=== PATIENT | male | born 1950 | race African-American/Black ===

== ENCOUNTER 2018-01-08 12:04 | Inpatient (IN) | payer OTHER ==
[2018-01-08 12:44] VITALS: BMI 17.4
--- NOTE | 2018-01-08 17:36 | HP ---
Admission [facility] - HPI Chief Complaint: PT here for stopping cocaine use- uses about sniffs/smokes about $50/day. Says he has lost weight b/c not eating when he uses cocaine. Last use today Pt states has a h/o HTN and was taking norvasc 5mg- last use few days ago. Pt states he is on [facility] methadone program 100 mg. Occ uses heroin sniffing- last use today Allergies/Adverse Reactions: Allergies Allergy/AdvReac Type Severity Reaction Status Date / Time Penicillins AdvReac Verified 01/08/18 13:08 History of Present Illness: Pt has been using since age 26. Stopped using for about 16 years and started again about 2 years ago after his . Exam Limitations: No Limitations - Ebola screening Have you traveled outside of the country in the last 21 days: No Have you had contact with anyone from an Ebola affected area: No Have you been sick,other than usual withdrawal symptoms: No Do you have a fever: No Patient History - Patient Medical History Hx Anemia: No Hx Asthma: No Hx Chronic Obstructive Pulmonary Disease (COPD): No Hx Cancer: No Hx Cardiac Disorders: No Hx Congestive Heart Failure: No Hx Hypertension: Yes Hx Hypercholesterolemia: No Hx Pacemaker: No HX Cerebrovascular Accident: No Hx Seizures: No Hx Dementia: No Hx Diabetes: No Hx Gastrointestinal Disorders: No Hx Liver Disease: No Hx Genitourinary Disorders: No Hx Sexually Transmitted Disorders: No Hx Renal Disease (ESRD): No Hx Thyroid Disease: No - Smoking Cessation Smoking history: Never smoked - Substance & Tx. History Hx Alcohol Use: No Hx Substance Use: Yes Substance Use Type: Cocaine, Heroin Hx Substance Use Treatment: Yes (methadone) - Substances Abused Heroin Route: Inhalation Frequency: 3-6 times per week Amount used: 2-3 BAGS Age of first use: 18 Date of Last Use: 01/08/18 Cocaine Route: Smoking Frequency: Daily Amount used: $40-$50 Age of first use: 26 Date of Last Use: 01/08/18 Family Disease History - Family Disease History Family Disease History: Diabetes: Sister, [place]: Mother, Other: Daughter (overdose - ) Admission Physical Exam [facility] - Vital Signs Vital Signs: Vital Signs - 24 hr 01/08/18 12:40 Temperature 98.2 F Pulse Rate 58 L Respiratory 18 Rate Blood Pressure 126/74 - Physical General Appearance: Yes: Thin HEENTM: Yes: Within Normal Limits, EOMI, Hearing grossly Normal, Normal Voice, Other (upper and lower dentures) Respiratory: Yes: Within Normal Limits, Lungs Clear Neck: Yes: Within Normal Limits Breast: Yes: Within Normal Limits Cardiology: Yes: Within Normal Limits Abdominal: Yes: Within Normal Limits Genitourinary: Yes: Within Normal Limits Back: Yes: Within Normal Limits Musculoskeletal: Yes: Within Normal Limits Extremities: Yes: Within Normal Limits, Other (thin female) Neurological: Yes: Within Normal Limits Integumentary: Yes: Other (thin, dry skin of feet) Lymphatic: Yes: Within Normal Limits - Diagnostic (1) Cocaine abuse Current Visit: Yes Status: Acute (2) Cachectic Current Visit: Yes Status: Acute (3) HTN (hypertension) Current Visit: Yes Status: Acute (4) Dry skin Current Visit: Yes Status: Acute (5) Opioid use disorder, mild, in early remission, on maintenance therapy Current Visit: Yes Status: Acute (6) Methadone maintenance therapy patient Current Visit: Yes Status: Acute [facility] Breath Alcohol Content Breath Alcohol Content: 0 Urine Drug Screen - Results Drug Screen Negative: No Urine Drug Screen Results: ROMA-Cocaine, OPI-Opiates, MTD-Methadone Inpatient Rehab Admission - Initial Determination Are CD services needed?: Yes Free of communicable disease: Yes Not in need of hospitalization: Yes - Rehab Admission Criteria Previous failed treatment: No Poor recovery environment: Yes Comorbidities: Yes Lacks judgement: Yes Patient is meeting Inpatient Rehab admission criteria:: Yes
[2018-01-08] MEDS ORDERED: MAGNESIUM HYDROX 2400MG/30ML ORAL SUSPENSION 30 ML CUP PO PRN (17:47)
[2018-01-08] MEDS ORDERED: MAGNESIUM CITRATE 300 ML BOTTLE PO PRN (17:47)
[2018-01-08] MEDS ORDERED: P-EPHED 60MG/TRIPROLIDI 2.5MG TABLET PO PRN (17:47)
[2018-01-08] MEDS ORDERED: ACETAMINOPHEN 325 MG TABLET (FP) PO PRN (17:47)
[2018-01-08] MEDS ORDERED: LOPERAMIDE HCL 2 MG CAPSULE PO PRN (17:47)
[2018-01-08] MEDS ORDERED: guaiFENesin/D-METHORPHAN HB 10 ML UNIT-DOSE CUPS PO PRN (17:47)
[2018-01-08] MEDS ORDERED: MENTHOL/PHENOL 1 EACH UD MM PRN (17:47)
[2018-01-08] MEDS ORDERED: MAG HYDROX/AL HYDROX/SIMETH 30 ML UNIT-DOSE CUP PO PRN (17:47)
[2018-01-08] MEDS ORDERED: IBUPROFEN 400 MG TABLET (FP) PO PRN (17:47)
[2018-01-08] MEDS: VITAMINS A AND D TOPICAL OINTMENT 60 GM TUBE TP SCH ×2 (22:21→23:32)
[2018-01-08] MEDS: THIAMINE HCL 100 MG TABLET (FP) PO SCH (22:21)
[2018-01-08 23:52] LABS: URINE APPEARANCE CLEAR; URINE BILIRUBIN NEGATIVE (<2.0 mg/dL); URINE COLOR YELLOW; URINE GLUCOSE (UA) NEGATIVE (NEGATIVE); URINE KETONE NEGATIVE (NEGATIVE); URINE LEUK ESTERASE NEGATIVE (NEGATIVE); URINE NITRITE NEGATIVE (NEGATIVE); URINE PROTEIN NEGATIVE (NEGATIVE); URINE UROBILINOGEN NEGATIVE mg/dL (0.2-1.0)
[2018-01-09] MEDS: VITAMINS A AND D TOPICAL OINTMENT 60 GM TUBE TP SCH ×3 (06:00→18:00)
--- NOTE | 2018-01-09 06:53 | HP ---
Psychiatrist Admission - Data Date of interview: 01/09/18 Admission source: 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 Patient is on methadone 100 mg/day Psychiatric History: Denies history of previous psychiatric treatment Physical/Sexual Abuse/Trauma History: Denies emotional, physical or sexual abuse as DV relationship. No service Additional Comment: Reports history of one previous distant(20 years ago) arrest on charges of drug possession. Vital Signs: Vital Signs - 24 hr 01/08/18 01/09/18 01/09/18 12:40 03:30 06:43 Temperature 98.2 F 98.1 F Pulse Rate 58 L 56 L Respiratory 18 18 16 Rate Blood Pressure 126/74 112/63 Allergies/Adverse Reactions: Allergies Allergy/AdvReac Type Severity Reaction Status Date / Time Penicillins AdvReac Verified 01/08/18 13:08 Date of last physical exam: 01/08/18 Concur with the findings of this exam: Yes - Substance Abuse/Tx History Hx Substance Use: Yes (Currently attends [facility]) Substance Use Type: Cocaine (Started smoking crack cocaine at ge 26, consumes $ 40-50 worth daily. Last Smoked on 01/08/18), Heroin (Started using heroin at age 18, consumes 2-3 bags 3-6 times weekly. Last used on 01/08/18) Hx Substance Use Treatment: Yes (4-5 previous inpt detox & 2 inpt rehab admissions) Mental Status Exam - Mental Status Exam Alert and Oriented to: Time, Place, Person Cognitive Function: Fair Patient Appearance: Well Groomed Mood: Hopeful, Euthymic Patient Behavior: Cooperative Speech Pattern: Clear Voice Loudness: Normal Thought Process: Intact, Goal Oriented Thought Disorder: Not Present Hallucinations: Denies Suicidal Ideation: Denies Homicidal Ideation: Denies Insight/Judgement: Fair Sleep: Fair Appetite: Good Muscle strength/Tone: Normal Gait/Station: Normal Psychiatric Findings - Problem List ([place] 1, 2,3) (1) Cocaine dependence Current Visit: Yes Status: Acute (2) Opioid dependence on agonist therapy Current Visit: Yes Status: Chronic (3) HTN (hypertension) Current Visit: Yes Status: Acute Qualifiers: Hypertension type: essential hypertension Qualified Code(s): I10 - Essential (primary) hypertension (4) Positive PPD, treated Current Visit: Yes Status: Acute - Initial Treatment Plan Initial Treatment Plan: Monitor progress
[2018-01-09] MEDS ORDERED: METHADONE HCL 10 MG TABLET PO SCH (07:30)
[2018-01-09] MEDS: METHADONE 80 MG, METHADONE 20 MG PO SCH (08:45)
[2018-01-09] MEDS: PRENATAL VITAMINS W/ FOLIC ACID TABLET (FP) PO SCH (10:02)
[2018-01-09] MEDS ORDERED: METHADONE HCL 40 MG DISPERSABLE TABLET ONE (10:04)
[2018-01-09] MEDS ORDERED: METHADONE HCL 10 MG TABLET ONE (10:04)
[2018-01-09 10:56] LABS: ALBUMIN 3.5 g/dl (3.4-5.0); ALK PHOS 115 U/L (45-117); ANION GAP 10 MMOL/L (8-16); BILIRUBIN,TOTAL 0.7 mg/dL (0.2-1); BLOOD UREA NITROGEN 19 mg/dL (7-18); CHLORIDE 105 mmol/L (98-107); CO2 25 mmol/L (21-32); CREATININE 0.8 mg/dL (0.55-1.3); GLUCOSE,RANDOM 92 mg/dL (74-106); POTASSIUM 4.2 mmol/L (3.5-5.1); SGOT/AST 67 U/L (15-37); SGPT/ALT 58 U/L (13-61); SODIUM 141 mmol/L (136-145)
[2018-01-09 10:57] LABS: MEAN PLT VOLUME 11.4 fl (7.5-11.1); RDW 13.7 % (11.9-15.9); WHITE BLOOD COUNT 4.2 K/mm3 (4.0-10.0)
[2018-01-09 11:02] LABS: HEMATOCRIT 40.3 % (35.4-49); HEMOGLOBIN 13.2 GM/dL (11.7-16.9); MCH 30.7 pg (25.7-33.7); MCHC 32.7 g/dl (32.0-35.9); MEAN CELL VOLUME 93.8 fl (80-96); PLATELET COUNT 162 K/MM3 (134-434); RBC 4.29 M/mm3 (4.00-5.60)
[2018-01-09] MEDS: THIAMINE HCL 100 MG TABLET (FP) PO SCH (21:36)
[2018-01-10] MEDS: VITAMINS A AND D TOPICAL OINTMENT 60 GM TUBE TP SCH ×4 (00:57→17:42)
[2018-01-10] MEDS ORDERED: METHADONE HCL 10 MG TABLET ONE (02:34)
[2018-01-10] MEDS ORDERED: METHADONE HCL 40 MG DISPERSABLE TABLET ONE (02:35)
[2018-01-10] MEDS: METHADONE 80 MG, METHADONE 20 MG PO SCH (06:07)
[2018-01-10] MEDS: PRENATAL VITAMINS W/ FOLIC ACID TABLET (FP) PO SCH (09:49)
[2018-01-10] MEDS ORDERED: PT OWN MED DRAWER 7, Y5N ONE (16:58)
[2018-01-10] MEDS: THIAMINE HCL 100 MG TABLET (FP) PO SCH (22:02)
[2018-01-11] MEDS: VITAMINS A AND D TOPICAL OINTMENT 60 GM TUBE TP SCH ×4 (02:22→18:00)
[2018-01-11] MEDS ORDERED: METHADONE HCL 40 MG DISPERSABLE TABLET ONE (04:09)
[2018-01-11] MEDS ORDERED: METHADONE HCL 10 MG TABLET ONE (04:09)
[2018-01-11] MEDS: METHADONE 80 MG, METHADONE 20 MG PO SCH (06:20)
[2018-01-11] MEDS: PRENATAL VITAMINS W/ FOLIC ACID TABLET (FP) PO SCH (09:47)
[2018-01-11] MEDS ORDERED: PT OWN MED DRAWER 7, Y5N ONE ×2 (09:49→16:41)
[2018-01-11] MEDS: THIAMINE HCL 100 MG TABLET (FP) PO SCH (21:41)
[2018-01-12] MEDS: VITAMINS A AND D TOPICAL OINTMENT 60 GM TUBE TP SCH ×4 (00:18→17:02)
[2018-01-12] MEDS ORDERED: METHADONE HCL 40 MG DISPERSABLE TABLET ONE (03:51)
[2018-01-12] MEDS ORDERED: METHADONE HCL 10 MG TABLET ONE (03:51)
[2018-01-12] MEDS: METHADONE 80 MG, METHADONE 20 MG PO SCH (06:01)
[2018-01-12] MEDS: PRENATAL VITAMINS W/ FOLIC ACID TABLET (FP) PO SCH (10:00)
[2018-01-12] MEDS: THIAMINE HCL 100 MG TABLET (FP) PO SCH (21:27)
[2018-01-13] MEDS: VITAMINS A AND D TOPICAL OINTMENT 60 GM TUBE TP SCH ×4 (00:05→19:20)
[2018-01-13] MEDS ORDERED: METHADONE HCL 40 MG DISPERSABLE TABLET ONE (04:35)
[2018-01-13] MEDS ORDERED: METHADONE HCL 10 MG TABLET ONE (04:35)
[2018-01-13] MEDS: METHADONE 80 MG, METHADONE 20 MG PO SCH (06:27)
[2018-01-13] MEDS: PRENATAL VITAMINS W/ FOLIC ACID TABLET (FP) PO SCH (10:11)
[2018-01-13] MEDS ORDERED: PT OWN MED DRAWER 7, Y5N ONE (12:36)
[2018-01-13] MEDS: THIAMINE HCL 100 MG TABLET (FP) PO SCH (22:02)
[2018-01-14] MEDS: VITAMINS A AND D TOPICAL OINTMENT 60 GM TUBE TP SCH ×5 (00:49→23:09)
[2018-01-14] MEDS ORDERED: METHADONE HCL 40 MG DISPERSABLE TABLET ONE (03:23)
[2018-01-14] MEDS ORDERED: METHADONE HCL 10 MG TABLET ONE (03:23)
[2018-01-14] MEDS ORDERED: PT OWN MED DRAWER 7, Y5N ONE ×2 (03:23→17:09)
[2018-01-14] MEDS: METHADONE 80 MG, METHADONE 20 MG PO SCH (06:07)
[2018-01-14] MEDS: PRENATAL VITAMINS W/ FOLIC ACID TABLET (FP) PO SCH (09:53)
[2018-01-14] MEDS: THIAMINE HCL 100 MG TABLET (FP) PO SCH (21:27)
[2018-01-15] MEDS ORDERED: METHADONE HCL 10 MG TABLET ONE (02:42)
[2018-01-15] MEDS ORDERED: METHADONE HCL 40 MG DISPERSABLE TABLET ONE (02:42)
[2018-01-15] MEDS: METHADONE 80 MG, METHADONE 20 MG PO SCH (06:01)
[2018-01-15] MEDS: VITAMINS A AND D TOPICAL OINTMENT 60 GM TUBE TP SCH ×3 (06:02→19:11)
[2018-01-15] MEDS: PRENATAL VITAMINS W/ FOLIC ACID TABLET (FP) PO SCH (09:55)
[2018-01-15] MEDS: THIAMINE HCL 100 MG TABLET (FP) PO SCH (22:03)
[2018-01-16] MEDS: VITAMINS A AND D TOPICAL OINTMENT 60 GM TUBE TP SCH ×6 (00:39→23:50)
[2018-01-16] MEDS ORDERED: METHADONE HCL 40 MG DISPERSABLE TABLET ONE (05:27)
[2018-01-16] MEDS ORDERED: METHADONE HCL 10 MG TABLET ONE (05:27)
[2018-01-16] MEDS: METHADONE 80 MG, METHADONE 20 MG PO SCH (06:18)
[2018-01-16] MEDS: PRENATAL VITAMINS W/ FOLIC ACID TABLET (FP) PO SCH (10:02)
[2018-01-16] MEDS: THIAMINE HCL 100 MG TABLET (FP) PO SCH (22:57)
[2018-01-17] MEDS ORDERED: METHADONE HCL 10 MG TABLET ONE (04:11)
[2018-01-17] MEDS ORDERED: METHADONE HCL 40 MG DISPERSABLE TABLET ONE (04:12)
[2018-01-17] MEDS: VITAMINS A AND D TOPICAL OINTMENT 60 GM TUBE TP SCH ×3 (05:56→19:17)
[2018-01-17] MEDS: METHADONE 80 MG, METHADONE 20 MG PO SCH (06:26)
[2018-01-17] MEDS: PRENATAL VITAMINS W/ FOLIC ACID TABLET (FP) PO SCH (10:44)
[2018-01-17] MEDS: MELATONIN 5 MG TABLETS PO PRN (22:03)
[2018-01-17] MEDS: THIAMINE HCL 100 MG TABLET (FP) PO SCH (22:03)
[2018-01-18] MEDS ORDERED: METHADONE HCL 40 MG DISPERSABLE TABLET ONE (04:29)
[2018-01-18] MEDS ORDERED: METHADONE HCL 10 MG TABLET ONE (04:29)
[2018-01-18] MEDS: VITAMINS A AND D TOPICAL OINTMENT 60 GM TUBE TP SCH ×4 (05:57→19:07)
[2018-01-18] MEDS: METHADONE 80 MG, METHADONE 20 MG PO SCH ×2 (05:57→07:25)
[2018-01-18 06:52] VITALS: TEMP 98.1
[2018-01-18] MEDS: PRENATAL VITAMINS W/ FOLIC ACID TABLET (FP) PO SCH (10:11)
[2018-01-18] MEDS: THIAMINE HCL 100 MG TABLET (FP) PO SCH (22:04)
[2018-01-18] MEDS: MELATONIN 5 MG TABLETS PO PRN (22:04)
[2018-01-19] MEDS: VITAMINS A AND D TOPICAL OINTMENT 60 GM TUBE TP SCH ×2 (00:31→06:11)
[2018-01-19] MEDS ORDERED: METHADONE HCL 40 MG DISPERSABLE TABLET ONE (03:06)
[2018-01-19] MEDS ORDERED: METHADONE HCL 10 MG TABLET ONE (03:06)
[2018-01-19] MEDS: METHADONE 80 MG, METHADONE 20 MG PO SCH (06:11)
[2018-01-19 06:51] VITALS: BP 140/68; PULSE 57
--- NOTE | 2018-01-19 09:23 | PN ---
[facility] Progress Note Note: Patient completed this program today.Hr has met his treatment goals and will continue to address his issues on outpatient basis.Supportive therapy t providedPatient is stable for discharge today.
[2018-01-19] MEDS: PRENATAL VITAMINS W/ FOLIC ACID TABLET (FP) PO SCH (09:59)
== END 2018-01-19 09:55 | disposition home or self-care (01) | DRG 895 ==
LOC: YASAS 12:04 → Y3W 16:20
PROVIDERS: ADMIT Psychiatry & Neurology Psychiatry; ATTEND Psychiatry & Neurology Psychiatry
PROC: HZ42ZZZ Group Counseling for Substance Abuse Treatment, Cognitive-Behavioral (ICD-10-PCS; principal; 2018-01-08)
DX: F14.20 Cocaine dependence, uncomplicated (principal); F11.20 Opioid dependence, uncomplicated; R64 Cachexia; I10 Essential (primary) hypertension; L85.3 Xerosis cutis; R76.11 Nonspecific reaction to tuberculin skin test without active tuberculosis; Z88.0 Allergy status to penicillin
CPT/HCPCS: 36415; 71046-TC-FY; 80053; 81003; 85027; 86593

== ENCOUNTER 2019-02-12 15:20 | Inpatient (IN) | payer OTHER ==
[2019-02-12 18:30] VITALS: BMI 18.0
--- NOTE | 2019-02-12 21:28 | HP ---
CIWA Score Nausea/Vomitin-No Nausea/No Vomiting Muscle Tremors: None Anxiety: 0-No Anxiety, at Ease Agitation: 0-Normal Activity Paroxysmal Sweats: No Perspiration Orientation: 0-Oriented Tacttile Disturbances: 0-None Auditory Disturbances: 0-None Visual Disturbances: 0-None Headache: 0-None Present CIWA-Ar Total Score: 0 - Admission Criteria OASAS Guidelines: Admission for Medically Managed Detox: Requires at least one of the followin. CIWA greater than 12 2. Seizures within the past 24 hours 3. Delirium tremens within the past 24 hours 4. Hallucinations within the past 24 hours 5. Acute intervention needed for co occurring medical disorder 6. Acute intervention needed for co occurring psychiatric disorder 7. Severe withdrawal that cannot be handled at a lower level of care (continued vomiting, continued diarrhea, abnormal vital signs) requiring intravenous medication and/or fluids 8. Patient presents the following: None of the above Admission Criteria Met: Admission criteria not met Admitting History and Physical - Smoking History Smoking history: Never smoked - Alcohol/Substance Use Hx Alcohol Use: No Admission ROS [facility] - HPI Chief Complaint: States here to stop drinking, using cocaine and heroin. Allergies/Adverse Reactions: Allergies Allergy/AdvReac Type Severity Reaction Status Date / Time Penicillins AdvReac Verified 02/12/19 18:19 History of Present Illness: 68 yo w/2 prior [facility] admissions seeking detox from alcohol, cocaine, and heroin. Overdose -10 years ago. Denies seizures/blackouts. CIWA = 0. FRANTZ: 0.0 Patient is a to be admitted to rehab. Alcohol use began at age 17. States drinks, but not every day. States "I'm not really a drinker" Cocaine use began at age [age]. Currently smokes $40-50 daily. Heroin use began at age 18. Currently on [facility] Methadone Program - Methadone dose is 85 mg - LDM today. Continues to relapse 2x/ wk w/ heroin intranasal. Does not have a Narcan kit at home. Denies nicotine use. PMHx: Hep C; HTN; Wound (R) leg x 3 weeks Not seen by a medical provider- states was taking un-prescribed antibiotics. Hx: PPD+ Last CXR: 01/12/18. MHHx: Some anxiety now. Denies depression. Denies thoughts of harming self or others. SHx: Domiciled. Unemployed (Retired). Denies legal issues. Search Terms: Henri Garcia, 1950 Search Date: 02/12/2019 09:24:47 PM The Drug Utilization Report below displays all of the controlled substance prescriptions, if any, that your patient has filled in the last twelve months. The information displayed on this report is compiled from pharmacy submissions to the Department, and accurately reflects the information as submitted by the pharmacies. This report was requested by: Anu Lucero | Reference #: [id number] There are no results for the search terms that you entered. PATIENT W/ HX OF COCAINE AND ALCOHOL USE DISORDER BEING ADMITTED TO REHAB. PATIENT ALSO W/ HX OPIOID USE DISORDER ON METHADONE MAINTENANCE. [place]X, ABOVE. PATIENT BEING SENT TO [facility] ED FOR EVALUATION OF ASYMPTOMATIC BRADYCARDIA AND ABNORMAL FINDINGS ON EKG REPORT GIVEN TO .DR. OLIVAREZ. PATIENT TRANSPORTED BY AMBULANCE. PATIENT TO RETURN TO [facility] FOR ADMISSION TO REHAB PENDING AVAILABILITY. Exam Limitations: No Limitations - Ebola screening Have you traveled outside of the country in the last 21 days: No (N) Have you had contact with anyone from an Ebola affected area: No Have you been sick,other than usual withdrawal symptoms: No Do you have a fever: No - Review of Systems Constitutional: Unintentional Wgt. Loss EENT: reports: Blurred Vision, Dental Problems (False teeth) Respiratory: reports: No Symptoms reported Cardiac: reports: No Symptoms Reported GI: reports: No Symptoms Reported : reports: Frequency (3x/night nocturia) Musculoskeletal: reports: No Symptoms Reported Integumentary: reports: Lesions ((R) ankle) Neuro: reports: No Symptoms reported Endocrine: reports: No Symptoms Reported Hematology: reports: No Symptoms Reported Psychiatric: reports: Orientated x3, Anxious Patient History - Patient Medical History Hx Anemia: No Hx Asthma: No Hx Chronic Obstructive Pulmonary Disease (COPD): No Hx Cancer: No Hx Cardiac Disorders: No Hx Congestive Heart Failure: No Hx Hypertension: Yes Hx Hypercholesterolemia: No Hx Pacemaker: No HX Cerebrovascular Accident: No Hx Seizures: No Hx Dementia: No Hx Diabetes: No Hx Gastrointestinal Disorders: No Hx Liver Disease: No Hx Genitourinary Disorders: No Hx Sexually Transmitted Disorders: No Hx Renal Disease (ESRD): No Hx Thyroid Disease: No Hx Depression: No Hx Suicide Attempt: No Hx Schizophrenia: No - PPD History Previous Implant?: Yes Documented Results: Negative w/o proof Implanted On Prior [facility] Admission?: Yes PPD to be Administered?: Yes - Smoking Cessation Smoking history: Never smoked - Substance & Tx. History Hx Alcohol Use: Yes Hx Substance Use: Yes Substance Use Type: Alcohol, Cocaine, Heroin, Opiates Hx Substance Use Treatment: Yes (detox, rehabs, Currently on MMTP) - Substances abused Heroin Substance route: Inhalation Frequency: 1-2 times per week Amount used: 2 bags Age of first use: 18 Date of last use: 02/12/19 Alcohol Substance route: Oral Frequency: Daily Amount used: 1 nip of fireball/whiskey/ occasional [employer] Age of first use: 17 Date of last use: 02/11/19 Admission Physical Exam [facility] - Vital Signs Vital Signs: Vital Signs - 24 hr 02/12/19 18:19 Temperature 97.0 F L Pulse Rate 52 L Respiratory 16 Rate Blood Pressure 108/60 - Physical General Appearance: Yes: No Apparent Distress, Thin HEENTM: Yes: Hearing grossly Normal, Normocephalic, Normal Voice, Other Respiratory: Yes: Lungs Clear (Pulse Ox = 98.), Normal Breath Sounds, No Respiratory Distress Neck: Yes: No masses,lesions,Nodules, Supple Breast: Yes: Breast Exam Deferred Cardiology: Yes: Regular Rhythm, S1, S2, Bradycardia (HR: 48) Abdominal: Yes: Normal Bowel Sounds, Non Tender, Flat, Soft Genitourinary: Yes: Nocturia (3x / night) Back: Yes: Normal Inspection Musculoskeletal: Yes: full range of Motion Extremities: Yes: Normal Capillary Refill (Peripheral pulses +), Other ( Thickened, leathery skin on BLE. Slight swelling (R) foot/ankle area. Pedal pulses +) Neurological: Yes: Fully Oriented, Alert, Motor Strength 5/5 Integumentary: Yes: Warm, Other (Superficial ulcer above (R) ankle w/ pinkish tissue - approx 4.5 cm x 2.5 cm) Lymphatic: Yes: Within Normal Limits - Diagnostic (1) Bradycardia Current Visit: Yes Status: Suspected (2) Cocaine dependence Current Visit: Yes Status: Chronic Qualifiers: Substance use status: uncomplicated Qualified Code(s): F14.20 - Cocaine dependence, uncomplicated (3) Dry skin Current Visit: Yes Status: Chronic (4) HTN (hypertension) Current Visit: Yes Status: Chronic Qualifiers: Hypertension type: essential hypertension Qualified Code(s): I10 - Essential (primary) hypertension (5) Opioid dependence on agonist therapy Current Visit: Yes Status: Chronic Comment: On Methadone maintenance (6) Abnormal electrocardiogram [ECG] [EKG] Current Visit: Yes Status: Suspected (7) Alcohol abuse Current Visit: Yes Status: Chronic Cleared for Admission [facility] - Detox or Rehab Claeared for Rehab Admission: Yes Breathalyzer - Breathalyzer Breathalyzer: 0 Urine Drug Screen - Test Device Lot number: [id number] Expiration date: 10/07/20 - Control Is test valid?: Yes - Results Drug screen NEGATIVE: No Urine drug screen results: ROMA-Cocaine, FEN-Fentanyl, MOP-Opiates, MTD-Methadone Inpatient Rehab Admission - Rehab Decision to Admit Inpatient rehab admission?: Yes - Initial Determination Are CD services needed?: Yes Free of communicable disease: Yes Not in need of hospitalization: Yes - Rehab Admission Criteria Previous failed treatment: Yes Poor recovery environment: Yes Comorbidities: Yes Lacks judgement: Yes Patient is meeting Inpatient Rehab admission criteria:: Yes
[2019-02-12] MEDS ORDERED: MAG HYDROX/AL HYDROX/SIMETH 30 ML UNIT-DOSE CUP PO PRN (22:39)
[2019-02-12] MEDS ORDERED: MENTHOL/PHENOL 1 EACH UD MM PRN (22:39)
[2019-02-12] MEDS ORDERED: LOPERAMIDE HCL 2 MG CAPSULE PO PRN (22:39)
[2019-02-12] MEDS ORDERED: MAGNESIUM CITRATE 300 ML BOTTLE PO PRN (22:39)
[2019-02-12] MEDS ORDERED: ACETAMINOPHEN 325 MG TABLET (FP) PO PRN (22:39)
[2019-02-12] MEDS ORDERED: P-EPHED 60MG/TRIPROLIDI 2.5MG TABLET PO PRN (22:39)
[2019-02-12] MEDS ORDERED: MAGNESIUM HYDROX 2400MG/30ML ORAL SUSPENSION 30 ML CUP PO PRN (22:39)
[2019-02-12] MEDS ORDERED: guaiFENesin 200 MG/10 ML 10 ML UNIT-DOSE CUPS PO PRN (22:39)
--- NOTE | 2019-02-13 09:26 | PN ---
[facility] Progress Note Note: this 68 years old male was seen and evaluated at er at [facility] and medically clear to return for rehab patient is using cocaine daily sniffing stated at age of 26 last used 02/12/19 drinking twice a week 3 nips of whiskey stated at age of 16 last drink 02/12/19 heroin 3 bags/use,twice a week,sniffing,started at age of 20,last used 02/12/19 mmtp 85 mgs/day last medicated yesterday history of hypertension non compliance weight loss denied seizure denied syncope had chronic ulcer of lateral aspect of right leg size 4x3 cm,look clean please see the history and physical examination by Anu Lucero on 02/12/19 patient to be admitted to rehab 343A patient has no chest pain,no sob,no dizziness ambulation without difficulty medically clear to go to rehab diagnosis cocaine dependence alcohol disorder heroin abused methadone maintenance therapy patient asymptomatic bradycardia hypertension ulcer of right leg weight loss
[2019-02-13] MEDS ORDERED: METHADONE HCL 10 MG TABLET PO ONE (09:30)
--- NOTE | 2019-02-13 09:43 | PN ---
[facility] Progress Note Note: ekg sinus bradycardia 46/min lvh inverted t wave v2 to v6,prolong qt 523/465 asymptomatic no chest pain,no sob,no dizziness will repeat ekg on 02/14/19 at 0900
[2019-02-13] MEDS ORDERED: BACITRACIN 0.9 GM PACKET TP SCH (10:00)
[2019-02-13] MEDS ORDERED: METHADONE HCL 40 MG DISPERSABLE TABLET ONE (12:53)
[2019-02-13] MEDS ORDERED: METHADONE HCL 5 MG TABLET ONE (12:53)
[2019-02-13] MEDS: amLODIPine BESYLATE 5 MG TABLET (FP) PO SCH (12:54)
[2019-02-13] MEDS: PRENATAL VITAMINS W/ FOLIC ACID TABLET (FP) PO SCH (12:54)
[2019-02-13] MEDS ORDERED: METHADONE 80 MG, METHADONE 5 MG PO ONE (13:00)
[2019-02-13] MEDS: BACITRACIN 15 GM TUBE TOPICAL OINTMENT TP SCH (21:42)
[2019-02-13] MEDS: THIAMINE HCL 100 MG TABLET (FP) PO SCH (21:42)
--- NOTE | 2019-02-13 23:27 | EKG ---
Test Reason : Blood Pressure : / mmHG Vent. Rate : 049 BPM Atrial Rate : 049 BPM P-R Int : 158 ms QRS Dur : 096 ms QT Int : 534 ms P-R-T Axes : 077 073 085 degrees QTc Int : 482 ms SINUS BRADYCARDIA VOLTAGE CRITERIA FOR LEFT VENTRICULAR HYPERTROPHY SEPTAL INFARCT , AGE UNDETERMINED T WAVE ABNORMALITY, CONSIDER ANTERIOR ISCHEMIA ABNORMAL ECG NO PREVIOUS ECGS AVAILABLE Confirmed by MATTHIAS LAKE MD ([id number]) on 02/13/2019 11:26:57 PM Referred By: LAMAR GREEN Confirmed By:MATTHIAS LAKE MD
[2019-02-14] MEDS ORDERED: METHADONE HCL 40 MG DISPERSABLE TABLET ONE (05:31)
[2019-02-14] MEDS ORDERED: METHADONE HCL 5 MG TABLET ONE (05:31)
[2019-02-14] MEDS ORDERED: METHADONE HCL 40 MG DISPERSABLE TABLET PO SCH (06:00)
[2019-02-14] MEDS: METHADONE 80 MG, METHADONE 5 MG PO SCH (06:02)
[2019-02-14] MEDS: BACITRACIN 15 GM TUBE TOPICAL OINTMENT TP SCH ×2 (09:28→22:06)
[2019-02-14] MEDS: PRENATAL VITAMINS W/ FOLIC ACID TABLET (FP) PO SCH (09:29)
[2019-02-14] MEDS: amLODIPine BESYLATE 5 MG TABLET (FP) PO SCH (09:29)
[2019-02-14] MEDS: THIAMINE HCL 100 MG TABLET (FP) PO SCH (22:06)
[2019-02-15] MEDS ORDERED: METHADONE HCL 40 MG DISPERSABLE TABLET ONE (05:54)
[2019-02-15] MEDS ORDERED: METHADONE HCL 5 MG TABLET ONE (05:54)
[2019-02-15] MEDS: METHADONE 80 MG, METHADONE 5 MG PO SCH (06:18)
[2019-02-15] MEDS: amLODIPine BESYLATE 5 MG TABLET (FP) PO SCH (09:46)
[2019-02-15] MEDS: BACITRACIN 15 GM TUBE TOPICAL OINTMENT TP SCH ×2 (09:46→21:20)
[2019-02-15] MEDS: PRENATAL VITAMINS W/ FOLIC ACID TABLET (FP) PO SCH (09:46)
[2019-02-15] MEDS ORDERED: PT OWN MED DRAWER 7, Y5N ONE (19:20)
[2019-02-15] MEDS: THIAMINE HCL 100 MG TABLET (FP) PO SCH (21:19)
[2019-02-15] MEDS: MELATONIN 5 MG TABLETS PO PRN (21:20)
[2019-02-16] MEDS ORDERED: METHADONE HCL 40 MG DISPERSABLE TABLET ONE (05:34)
[2019-02-16] MEDS ORDERED: METHADONE HCL 5 MG TABLET ONE (05:34)
[2019-02-16] MEDS: METHADONE 80 MG, METHADONE 5 MG PO SCH (06:03)
[2019-02-16] MEDS: amLODIPine BESYLATE 5 MG TABLET (FP) PO SCH (09:38)
[2019-02-16] MEDS: PRENATAL VITAMINS W/ FOLIC ACID TABLET (FP) PO SCH (09:38)
[2019-02-16] MEDS: BACITRACIN 15 GM TUBE TOPICAL OINTMENT TP SCH ×2 (10:18→21:35)
--- NOTE | 2019-02-16 12:44 | EKG ---
Test Reason : Blood Pressure : / mmHG Vent. Rate : 058 BPM Atrial Rate : 058 BPM P-R Int : 156 ms QRS Dur : 088 ms QT Int : 394 ms P-R-T Axes : 070 071 090 degrees QTc Int : 386 ms SINUS BRADYCARDIA WITH PREMATURE ATRIAL COMPLEXES MINIMAL VOLTAGE CRITERIA FOR LVH, MAY BE NORMAL VARIANT SEPTAL INFARCT , AGE UNDETERMINED ABNORMAL ECG WHEN COMPARED WITH ECG OF 13-FEB-2019 10:36, PREMATURE ATRIAL COMPLEXES ARE NOW PRESENT T WAVE INVERSION LESS EVIDENT IN ANTERIOR LEADS QT HAS SHORTENED Confirmed by MD Celio, Sanya ([id number]) on 02/16/2019 12:44:05 PM Referred By: Christiano Ziegler Confirmed By:Sanya Pickens MD
[2019-02-16] MEDS: THIAMINE HCL 100 MG TABLET (FP) PO SCH (21:35)
[2019-02-17] MEDS ORDERED: METHADONE HCL 5 MG TABLET ONE (05:53)
[2019-02-17] MEDS ORDERED: METHADONE HCL 40 MG DISPERSABLE TABLET ONE (05:53)
[2019-02-17] MEDS: METHADONE 80 MG, METHADONE 5 MG PO SCH (06:29)
[2019-02-17] MEDS: IBUPROFEN 400 MG TABLET (FP) PO PRN (08:28)
[2019-02-17] MEDS: amLODIPine BESYLATE 5 MG TABLET (FP) PO SCH (09:33)
[2019-02-17] MEDS: PRENATAL VITAMINS W/ FOLIC ACID TABLET (FP) PO SCH (09:33)
[2019-02-17] MEDS: BACITRACIN 15 GM TUBE TOPICAL OINTMENT TP SCH ×2 (09:33→21:04)
--- NOTE | 2019-02-17 11:04 | PN ---
S Progress Note (SOAP) Subjective: Patient admitted to [facility] rehab. Has decubiti on inner aspect of right ankle. PMHx; 68 yo w/2 prior [facility] admissions. Overdose -10 years ago. Denies seizures/blackouts. Alcohol use began at age 17. States drinks, but not every day. States "I'm not really a drinker" Cocaine use began at age [age]. Currently smokes $40-50 daily. Heroin use began at age 18. Currently on [facility] - Methadone dose is 85 mg - LDM today. Continues to relapse 2x/ wk w/ heroin intranasal. Does not have a Narcan kit at home. Denies nicotine use. PMHx: Hep C; HTN; Wound (R) leg x 3 weeks Not seen by a medical provider- states was taking un-prescribed antibiotics. Hx: PPD+ Last CXR: 01/12/18. MHHx: Some anxiety now. Denies depression. Denies thoughts of harming self or others. SHx: Domiciled. Unemployed (Retired). Denies legal issues. Objective: Vital Signs Period Temp Pulse Resp BP Sys/[place] Pulse Ox Last 24 Hr 98 F 56 18-18 135/74 P/E: General: NO apparent distress HEENTM: Normocephalic, PERRLA Neck: supple. trachea in good position Lungs: clear Heart: s1 s2 ABD: soft, non-distended, non-tender Neuro: CN 2-12 intact SKIN: color consistent throughout trunk and extremities, good skin turgor (see below for description of decubiti) EXTREMITIES: Right leg, inner aspect of ankle with decubiti approximately 1.5 inches in width and 2.5 inches in length. [place] granulated tissue bed, no drainage, no odor, no s/s of infection, trace edema in ankle 02/17/19 11:00 Assessment: decubiti, right ankle inner aspect Substance use treatment. 02/17/19 11:04 Plan: Continue dressing changes with bacitracin Continue treatment Maintain safety.
[2019-02-17] MEDS: MELATONIN 5 MG TABLETS PO PRN (21:04)
[2019-02-17] MEDS: THIAMINE HCL 100 MG TABLET (FP) PO SCH (21:04)
[2019-02-18] MEDS ORDERED: METHADONE HCL 5 MG TABLET ONE (05:35)
[2019-02-18] MEDS ORDERED: METHADONE HCL 40 MG DISPERSABLE TABLET ONE (05:35)
[2019-02-18] MEDS: METHADONE 80 MG, METHADONE 5 MG PO SCH (06:01)
[2019-02-18] MEDS: PRENATAL VITAMINS W/ FOLIC ACID TABLET (FP) PO SCH (10:27)
[2019-02-18] MEDS: amLODIPine BESYLATE 5 MG TABLET (FP) PO SCH (10:27)
[2019-02-18] MEDS: BACITRACIN 15 GM TUBE TOPICAL OINTMENT TP SCH ×2 (10:28→22:25)
--- NOTE | 2019-02-18 10:50 | PN ---
[facility] Progress Note (SOAP) Subjective: Observed wound again today Objective: 02/18/19 10:48 Vital Signs Period Temp Pulse Resp BP Sys/[place] Pulse Ox Last 24 Hr 97.8 F-98 F 56-65 18-18 115-119/65-72 P/E: General: no apparent distress HEENTM:normocephalic Extremities: Right leg with dark, discolored skin on calf 3/4 up, also foot, + pedal pulse Skin: right inner aspect of ankle with decubiti 2.4cm X 4cm; pink granulated tissue, no odor, no s/s of infection, no drainage, 02/18/19 10:52 Assessment: decubiti, inner aspect of ankle 02/18/19 10:54 Plan: Continue dressing changes. Patient encouraged to have wound and leg evaluated by PCP for post discharge treatment.
[2019-02-18] MEDS: THIAMINE HCL 100 MG TABLET (FP) PO SCH (21:22)
[2019-02-19] MEDS ORDERED: METHADONE HCL 5 MG TABLET ONE (05:34)
[2019-02-19] MEDS ORDERED: METHADONE HCL 40 MG DISPERSABLE TABLET ONE (05:34)
[2019-02-19] MEDS: METHADONE 80 MG, METHADONE 5 MG PO SCH (06:23)
[2019-02-19] MEDS: amLODIPine BESYLATE 5 MG TABLET (FP) PO SCH (09:55)
[2019-02-19] MEDS: PRENATAL VITAMINS W/ FOLIC ACID TABLET (FP) PO SCH (09:55)
[2019-02-19] MEDS: IBUPROFEN 400 MG TABLET (FP) PO PRN (09:55)
[2019-02-19] MEDS: BACITRACIN 15 GM TUBE TOPICAL OINTMENT TP SCH ×2 (09:58→21:17)
[2019-02-19] MEDS: MELATONIN 5 MG TABLETS PO PRN (21:17)
[2019-02-19] MEDS: THIAMINE HCL 100 MG TABLET (FP) PO SCH (21:17)
[2019-02-20] MEDS ORDERED: METHADONE HCL 5 MG TABLET ONE (05:54)
[2019-02-20] MEDS ORDERED: METHADONE HCL 40 MG DISPERSABLE TABLET ONE (05:54)
[2019-02-20] MEDS: METHADONE 80 MG, METHADONE 5 MG PO SCH (06:14)
[2019-02-20] MEDS: amLODIPine BESYLATE 5 MG TABLET (FP) PO SCH (09:50)
[2019-02-20] MEDS: PRENATAL VITAMINS W/ FOLIC ACID TABLET (FP) PO SCH (09:50)
[2019-02-20] MEDS: BACITRACIN 15 GM TUBE TOPICAL OINTMENT TP SCH ×2 (10:55→21:35)
[2019-02-20] MEDS: THIAMINE HCL 100 MG TABLET (FP) PO SCH (21:34)
[2019-02-21] MEDS ORDERED: METHADONE HCL 5 MG TABLET ONE (05:49)
[2019-02-21] MEDS ORDERED: METHADONE HCL 40 MG DISPERSABLE TABLET ONE (05:49)
[2019-02-21] MEDS: METHADONE 80 MG, METHADONE 5 MG PO SCH (06:05)
[2019-02-21] MEDS: IBUPROFEN 400 MG TABLET (FP) PO PRN (06:50)
[2019-02-21] MEDS: PRENATAL VITAMINS W/ FOLIC ACID TABLET (FP) PO SCH (09:30)
[2019-02-21] MEDS: amLODIPine BESYLATE 5 MG TABLET (FP) PO SCH (09:30)
[2019-02-21] MEDS: BACITRACIN 15 GM TUBE TOPICAL OINTMENT TP SCH ×2 (09:31→21:05)
[2019-02-21] MEDS: MELATONIN 5 MG TABLETS PO PRN (21:05)
[2019-02-21] MEDS: THIAMINE HCL 100 MG TABLET (FP) PO SCH (21:05)
[2019-02-22] MEDS ORDERED: METHADONE HCL 40 MG DISPERSABLE TABLET ONE (05:31)
[2019-02-22] MEDS ORDERED: METHADONE HCL 5 MG TABLET ONE (05:31)
[2019-02-22] MEDS: METHADONE 80 MG, METHADONE 5 MG PO SCH (06:03)
[2019-02-22] MEDS: amLODIPine BESYLATE 5 MG TABLET (FP) PO SCH (09:50)
[2019-02-22] MEDS: PRENATAL VITAMINS W/ FOLIC ACID TABLET (FP) PO SCH (09:50)
[2019-02-22] MEDS: BACITRACIN 15 GM TUBE TOPICAL OINTMENT TP SCH ×2 (10:32→21:38)
[2019-02-22] MEDS: IBUPROFEN 400 MG TABLET (FP) PO PRN (18:50)
[2019-02-22] MEDS: THIAMINE HCL 100 MG TABLET (FP) PO SCH (21:38)
[2019-02-23] MEDS ORDERED: METHADONE HCL 40 MG DISPERSABLE TABLET ONE (05:27)
[2019-02-23] MEDS ORDERED: METHADONE HCL 5 MG TABLET ONE (05:28)
[2019-02-23] MEDS: METHADONE 80 MG, METHADONE 5 MG PO SCH (06:13)
[2019-02-23] MEDS: IBUPROFEN 400 MG TABLET (FP) PO PRN (08:54)
[2019-02-23] MEDS: PRENATAL VITAMINS W/ FOLIC ACID TABLET (FP) PO SCH (09:39)
[2019-02-23] MEDS: amLODIPine BESYLATE 5 MG TABLET (FP) PO SCH (09:39)
[2019-02-23] MEDS: BACITRACIN 15 GM TUBE TOPICAL OINTMENT TP SCH ×2 (09:39→21:19)
--- NOTE | 2019-02-23 11:14 | PN ---
S Progress Note (SOAP) Subjective: assessment of decubiti on right ankle Objective: General:no apparent distress Lungs; clear Heart: s1 s2 MSK: full weight bearing full ROM, steady gait Extremities: lower legs with dark scaly, cracked, hard skin, Right > left. Edema: non-pitting, right> left. Decubiti: Inner aspect of right ankle, Decreased in width from2.4 to 2, length is still 4, pink, granulated tissue, no drainage, no odor. 02/23/19 11:11 Assessment: Decubiti, possibly vascular , right inner aspect of ankle 02/23/19 11:13 Plan: continue with dressing changes. Elevate legs when at rest, Follow up with PCP upon discharge.
[2019-02-23] MEDS: THIAMINE HCL 100 MG TABLET (FP) PO SCH (21:19)
[2019-02-23] MEDS: MELATONIN 5 MG TABLETS PO PRN (21:19)
[2019-02-24] MEDS ORDERED: METHADONE HCL 40 MG DISPERSABLE TABLET ONE (04:08)
[2019-02-24] MEDS ORDERED: METHADONE HCL 5 MG TABLET ONE (04:09)
[2019-02-24] MEDS: METHADONE 80 MG, METHADONE 5 MG PO SCH (06:23)
[2019-02-24] MEDS: PRENATAL VITAMINS W/ FOLIC ACID TABLET (FP) PO SCH (10:06)
[2019-02-24] MEDS: amLODIPine BESYLATE 5 MG TABLET (FP) PO SCH (10:06)
[2019-02-24] MEDS: IBUPROFEN 400 MG TABLET (FP) PO PRN (10:07)
[2019-02-24] MEDS: BACITRACIN 15 GM TUBE TOPICAL OINTMENT TP SCH ×2 (10:08→21:28)
[2019-02-24] MEDS: THIAMINE HCL 100 MG TABLET (FP) PO SCH (21:28)
[2019-02-24] MEDS: MELATONIN 5 MG TABLETS PO PRN (21:28)
[2019-02-25] MEDS ORDERED: METHADONE HCL 5 MG TABLET ONE (04:14)
[2019-02-25] MEDS ORDERED: METHADONE HCL 40 MG DISPERSABLE TABLET ONE (04:14)
[2019-02-25] MEDS: METHADONE 80 MG, METHADONE 5 MG PO SCH (06:09)
[2019-02-25] MEDS: BACITRACIN 15 GM TUBE TOPICAL OINTMENT TP SCH ×2 (09:53→21:37)
[2019-02-25] MEDS: amLODIPine BESYLATE 5 MG TABLET (FP) PO SCH (09:54)
[2019-02-25] MEDS: IBUPROFEN 400 MG TABLET (FP) PO PRN (09:54)
[2019-02-25] MEDS: PRENATAL VITAMINS W/ FOLIC ACID TABLET (FP) PO SCH (09:54)
[2019-02-25] MEDS ORDERED: PERMETHRIN 5% TOPICAL CREAM 60 GM TUBE TP ONE ×2 (14:17→22:00)
--- NOTE | 2019-02-25 14:17 | PN ---
S Progress Note (SOAP) Subjective: Bedbugs found in patient's room Objective: General: no apparent distress SKIN: clear, except for ulcer on left ankle (see previous notes), no rashes or bites noted Neuro: Cn 2-12 intact MSK: full weight bearing, steady gait. 02/25/19 14:15 Assessment: Exposure to bedbugs 02/25/19 14:16 Plan: Room exterminated, housekeeping cleaned room, patient instructed to wash clothes and take a shower, Permethrin ordered and patient instructed about its use.
[2019-02-25] MEDS: THIAMINE HCL 100 MG TABLET (FP) PO SCH (21:37)
[2019-02-26] MEDS ORDERED: METHADONE HCL 40 MG DISPERSABLE TABLET ONE (05:36)
[2019-02-26] MEDS ORDERED: METHADONE HCL 5 MG TABLET ONE (05:37)
[2019-02-26] MEDS: METHADONE 80 MG, METHADONE 5 MG PO SCH (06:35)
[2019-02-26] MEDS ORDERED: PT OWN MED DRAWER 7, Y5N ONE (08:22)
[2019-02-26] MEDS: IBUPROFEN 400 MG TABLET (FP) PO PRN (08:25)
[2019-02-26] MEDS: amLODIPine BESYLATE 5 MG TABLET (FP) PO SCH (10:25)
[2019-02-26] MEDS: PRENATAL VITAMINS W/ FOLIC ACID TABLET (FP) PO SCH (10:25)
[2019-02-26] MEDS: BACITRACIN 15 GM TUBE TOPICAL OINTMENT TP SCH ×2 (10:26→21:05)
[2019-02-26] MEDS: THIAMINE HCL 100 MG TABLET (FP) PO SCH (21:04)
[2019-02-26] MEDS: MELATONIN 5 MG TABLETS PO PRN (21:04)
[2019-02-27] MEDS ORDERED: METHADONE HCL 40 MG DISPERSABLE TABLET ONE (05:32)
[2019-02-27] MEDS ORDERED: METHADONE HCL 5 MG TABLET ONE (05:32)
[2019-02-27] MEDS: METHADONE 80 MG, METHADONE 5 MG PO SCH (06:20)
[2019-02-27] MEDS: amLODIPine BESYLATE 5 MG TABLET (FP) PO SCH (09:43)
[2019-02-27] MEDS: PRENATAL VITAMINS W/ FOLIC ACID TABLET (FP) PO SCH (09:43)
[2019-02-27] MEDS: IBUPROFEN 400 MG TABLET (FP) PO PRN (09:43)
[2019-02-27] MEDS: BACITRACIN 15 GM TUBE TOPICAL OINTMENT TP SCH ×2 (09:43→21:15)
[2019-02-27] MEDS ORDERED: PT OWN MED DRAWER 7, Y5N ONE (19:24)
[2019-02-27] MEDS: THIAMINE HCL 100 MG TABLET (FP) PO SCH (21:15)
[2019-02-28] MEDS ORDERED: METHADONE HCL 5 MG TABLET ONE (05:35)
[2019-02-28] MEDS ORDERED: METHADONE HCL 40 MG DISPERSABLE TABLET ONE (05:35)
[2019-02-28] MEDS: METHADONE 80 MG, METHADONE 5 MG PO SCH (06:21)
[2019-02-28] MEDS: IBUPROFEN 400 MG TABLET (FP) PO PRN (09:36)
[2019-02-28] MEDS: PRENATAL VITAMINS W/ FOLIC ACID TABLET (FP) PO SCH (09:36)
[2019-02-28] MEDS: amLODIPine BESYLATE 5 MG TABLET (FP) PO SCH (09:36)
[2019-02-28] MEDS: BACITRACIN 15 GM TUBE TOPICAL OINTMENT TP SCH ×2 (10:24→22:40)
[2019-02-28] MEDS: THIAMINE HCL 100 MG TABLET (FP) PO SCH (22:37)
[2019-02-28] MEDS: MELATONIN 5 MG TABLETS PO PRN (22:39)
[2019-03-01] MEDS ORDERED: METHADONE HCL 40 MG DISPERSABLE TABLET ONE (03:39)
[2019-03-01] MEDS ORDERED: METHADONE HCL 5 MG TABLET ONE (03:40)
[2019-03-01] MEDS: METHADONE 80 MG, METHADONE 5 MG PO SCH (06:02)
[2019-03-01 07:11] VITALS: BP 109/71; PULSE 72; TEMP 97.8
--- NOTE | 2019-03-01 09:14 | DS ---
[facility] Rehab Discharge Summary - [facility] Rehab Discharge Summary Admission Date: 02/12/19 Discharge Date: 03/01/19 - History Present History: Alcohol dependence, Opioid dependence Pertinent Past History: 68 yo w/ Alcohol, cocaine, and heroin use. Overdose -10 years ago. Denies seizures/blackouts. Alcohol use began at age 17. States drinks, but not every day. States "I'm not really a drinker" Cocaine use began at age [age]. Currently smokes $40-50 daily. Heroin use began at age 18. Currently on [facility] - Methadone dose is 85 mg - LDM today. Continues to relapse 2x/ wk w/ heroin intranasal. Denies nicotine use. PMHx: Hep C; HTN; Wound (R) leg x 3 weeks Not seen by a medical provider- states was taking un-prescribed antibiotics. Hx: PPD+ Last CXR: 01/12/18. MHHx: Some anxiety now. Denies depression. Denies thoughts of harming self or others. SHx: Domiciled. Unemployed (Retired). Denies legal issues. - Discharge Physical Exam Vital Signs: Vital Signs Temperature 97.8 F 03/01/19 07:10 Pulse Rate 72 03/01/19 07:10 Respiratory Rate 18 03/01/19 07:10 Blood Pressure 109/71 03/01/19 07:10 O2 Sat by Pulse Oximetry (%) Pertinent Admission Physical Exam Findings: General Appearance: No Apparent Distress, Thin HEENTM: Normocephalic, Respiratory: Lungs Clear Neck: Supple Cardiology: S1, S2, Bradycardia Abdominal: +Bowel Sounds, Non Tender, Flat, Soft Musculoskeletal: Full range of Motion Extremities: Capillary Refill, Peripheral pulses +, Thickened, leathery skin on BLE. Slight swelling (R) foot/ankle area, Superficial ulcer above (R) ankle w / pinkish tissue - approx 4.5 cm x 2.5 cm) Neurological: CN 2-12 - Treatment Discharge Condition: Outpatient referral accepted (Will go to [facility]. Medically stable for discharge;) - Medication Discharge Medications: Ambulatory Orders Amlodipine Besylate 5 mg PO DAILY 01/08/18 Methadone [Dolophine -] 85 mg PO DAILY 02/13/19 - Medication-Assisted Treatment (MAT) Medication-Assisted Treatment (MAT): No - Discharge Instructions Diet, activity, other medical instructions: Diet: as tolerated Activity: as tolerated Other medical instructions: as tolerated - Diagnosis (1) Alcohol abuse Status: Chronic - AMA Did Patient Leave Against Medical Advice: No
[2019-03-01] MEDS: amLODIPine BESYLATE 5 MG TABLET (FP) PO SCH (09:36)
[2019-03-01] MEDS: PRENATAL VITAMINS W/ FOLIC ACID TABLET (FP) PO SCH (09:36)
[2019-03-01] MEDS: IBUPROFEN 400 MG TABLET (FP) PO PRN (09:37)
== END 2019-03-01 10:00 | disposition home or self-care (01) | DRG 895 ==
LOC: YASAS 15:20 → Y3W 22:43
PROVIDERS: ADMIT Neuromusculoskeletal Medicine & OMM; ATTEND Neuromusculoskeletal Medicine & OMM
PROC: HZ42ZZZ Group Counseling for Substance Abuse Treatment, Cognitive-Behavioral (ICD-10-PCS; principal; 2019-02-12)
DX: F14.20 Cocaine dependence, uncomplicated (principal); F11.20 Opioid dependence, uncomplicated; F10.10 Alcohol abuse, uncomplicated; I10 Essential (primary) hypertension; R63.4 Abnormal weight loss; R00.1 Bradycardia, unspecified; L89.519 Pressure ulcer of right ankle, unspecified stage; B18.2 Chronic viral hepatitis C; L98.8 Other specified disorders of the skin and subcutaneous tissue; R94.31 Abnormal electrocardiogram [ECG] [EKG]; Z88.0 Allergy status to penicillin; Z91.5 Personal history of self-harm
CPT/HCPCS: 93005; 93010

== ENCOUNTER 2019-02-12 23:16 | Emergency (ER) | payer OTHER ==
[2019-02-13 00:03] VITALS: BP 140/81; PULSE 49; TEMP 98.7; BMI 18.1
--- NOTE | 2019-02-13 00:08 | PDOC ---
History of Present Illness - General Chief Complaint: Irregular Heart Beat Stated Complaint: BRADYCARDIA History Source: Patient Exam Limitations: No Limitations - History of Present Illness Initial Comments: 68 yo M with a hx of hepatitis C, HTN, +PPD test in the past (last CXR 1 year ago), and polysubstance abuse (cocaine; last use yesterday, heroin last use yesterday currently on methadone) presents to the emergency department upon referral from [facility] for bradycardia noted on EKG. The patient currently has a rehabilitation bed at [facility] for substance abuse. No prior EKGs noted on the patient's chart. Currently, the patient states they feel at base line and denies having symptoms when exerting themselves. Denies the following: fevers, chills, SOB, chest pain, lightheadedness, dizziness, nausea, vomiting, dysuria, hematuria, diarrhea, hematochezia, and leg pain/swelling. Allergies: PCN Past History - Past Medical History Allergies/Adverse Reactions: Allergies Allergy/AdvReac Type Severity Reaction Status Date / Time Penicillins AdvReac Verified 02/12/19 18:19 Home Medications: Ambulatory Orders Amlodipine Besylate 5 mg PO DAILY 01/08/18 Anemia: No Asthma: No Cancer: No Cardiac Disorders: No CVA: No COPD: No CHF: No Dementia: No Diabetes: No GI Disorders: No Disorders: No HTN: Yes Hypercholesterolemia: No Kidney Stones: No Liver Disease: No Seizures: No Thyroid Disease: No - Reproductive History Testicular Surgery: No - Psycho Social/Smoking Cessation Hx Smoking History: Unknown if ever smoked Have you smoked in the past 12 months: No Information on smoking cessation initiated: No Hx Alcohol Use: Yes Drug/Substance Use Hx: Yes (cocaine/heroin) Substance Use Type: Alcohol, Cocaine, Heroin, Opiates Hx Substance Use Treatment: Yes (detox, rehabs, Currently on MMTP) Review of Systems - Review of Systems Able to Perform ROS?: Yes Is the patient limited Azerbaijani proficient: No Constitutional: No: Chills, Diaphoresis, Fever, Weakness HEENTM: No: Eye Pain, Ear Pain, Nose Pain, Throat Pain, Mouth Pain Respiratory: No: Cough, Shortness of Breath, Hemoptysis Cardiac (ROS): No: Chest Pain, Lightheadedness, Palpitations, Syncope, Chest Tightness ABD/GI: No: Constipated, Diarrhea, Nausea, Rectal Bleeding, Vomiting, Tarry Stools : No: Burning, Dysuria, Hematuria Musculoskeletal: No: Back Pain, Joint Pain, Neck Pain Integumentary: No: Bruising, Erythema, Lesions Neurological: No: Headache, Tingling, Tremors, Ataxia Psychiatric: No: Change in Appetite Endocrine: No: Unexplained Weight Gain Hematologic/Lymphatic: No: Anemia *Physical Exam - Vital Signs Last Vital Signs Temp Pulse Resp BP Pulse Ox 98.7 F 49 L 11 140/81 96 02/12/19 23:53 02/12/19 23:53 02/12/19 23:53 02/12/19 23:53 02/12/19 23:53 - Physical Exam General Appearance: Yes: Nourished, Appropriately Dressed, Thin. No: Apparent Distress HEENT: positive: EOMI, [place], Normal Voice, Symmetrical, Pharynx Normal, Hearing Grossly Normal. negative: Pale Conjunctivae, Scleral Icterus (R), Scleral Icterus (L), Muffled/Hoarse voice, Pharyngeal Erythema, Tonsillar Exudate, Tonsillar Erythema, Excessive drooling Neck: positive: Trachea midline, Supple. negative: Tender, Lymphadenopathy (R) , Lymphadenopathy (L), Tender lateral, Tender midline Respiratory/Chest: positive: Lungs Clear, Normal Breath Sounds. negative: Chest Tender, Respiratory Distress, Accessory Muscle Use, Paradoxal Breathing, Crackles, Rales, Rhonchi, Hyperresonant Cardiovascular: positive: Regular Rhythm, S1, S2, Bradycardia. negative: Systolic Murmur Gastrointestinal/Abdominal: positive: Normal Bowel Sounds, Flat, Soft. negative : Tender Lymphatic: negative: Adenopathy Musculoskeletal: positive: Normal Inspection. negative: CVA Tenderness, Vertebral Tenderness Extremity: positive: Normal Capillary Refill, Normal Inspection, Normal Range of Motion. negative: Tender, Swelling, Calf Tenderness Integumentary: positive: Normal Color, Dry, Warm. negative: Swelling, Ecchymosis Neurologic: positive: rack pusher II-XII NML intact, Fully Oriented, Alert, Normal Mood/ Affect, Normal Response, Motor Strength 5/5 ED Treatment Course - LABORATORY CBC & Chemistry Diagram: 02/13/19 00:42 02/13/19 00:42 Medical Decision Making - Medical Decision Making 68 yo M with a hx of hepatitis C, HTN, +PPD test in the past (last CXR 1 year ago), and polysubstance abuse (cocaine; last use yesterday, heroin last use yesterday currently on methadone) presents to the emergency department upon referral from [facility] for bradycardia noted on EKG. Initial vitals: Initial Vital Signs Temp Pulse Resp BP Pulse Ox 98.7 F 49 L 11 140/81 96 02/12/19 23:53 02/12/19 23:53 02/12/19 23:53 02/12/19 23:53 02/12/19 23:53 Work up: ddx: patient states they are not have symptoms currently. Initial EKG states: ventricular rate of 50 bpm, ND is 154 ms, QRS is 92 ms, and QTc is 494 ms. TWI noted in V2-V4 with TW flattening in V5-V6. EKG states that there is an acute DE but we disagree. A repeat EKG was done that shows ventricular rate of 46 bpm, ND of 158 ms. Sinus bradycardia with stability of TW morphology changes. No STEMI noted. No ST depressions. Laboratory Tests 02/13/19 02/13/19 02/13/19 00:42 00:42 00:42 WBC 3.7 L RBC 4.27 Hgb 13.5 Hct 40.4 MCV 94.6 MCH 31.6 MCHC 33.4 RDW 13.9 Plt Count 156 MPV 9.5 D Absolute Neuts (auto) 1.4 L Neutrophils % 37.2 L Lymphocytes % 42.0 H Monocytes % 10.1 Eosinophils % 8.4 H Basophils % 2.3 H Nucleated RBC % 0 Sodium 143 Potassium 4.1 Chloride 109 H Carbon Dioxide 29 Anion Gap 5 L BUN 21.4 H Creatinine 0.8 Est GFR (CKD-EPI)AfAm 106.38 Est GFR (CKD-EPI)NonAf 91.79 Random Glucose 88 Calcium 9.1 Total Bilirubin 0.2 AST 41 H ALT 38 Alkaline Phosphatase 111 Creatine Kinase 351 H Creatine Kinase Index 2.9 CK-MB (CK-2) 10.3 H Troponin I < 0.02 Total Protein 7.0 Albumin 3.2 L 02/13/19 04:58 WBC RBC Hgb Hct MCV MCH MCHC RDW Plt Count MPV Absolute Neuts (auto) Neutrophils % Lymphocytes % Monocytes % Eosinophils % Basophils % Nucleated RBC % Sodium Potassium Chloride Carbon Dioxide Anion Gap BUN Creatinine Est GFR (CKD-EPI)AfAm Est GFR (CKD-EPI)NonAf Random Glucose Calcium Total Bilirubin AST ALT Alkaline Phosphatase Creatine Kinase Creatine Kinase Index CK-MB (CK-2) Troponin I < 0.02 Total Protein Albumin 02/13/19 05:42 Patient has negative trop x2. Medically clear to return to [facility] to complete rehabilitation for polysubstance abuse. Dispo: Discharge Discharge - Discharge Information Problems reviewed: Yes Clinical Impression/Diagnosis: Bradycardia, Cocaine dependence, HTN (hypertension), Opioid use disorder, mild , in early remission, on maintenance therapy Condition: Improved - Follow up/Referral Referrals: [facility] [place] [Provider Group] - Patient Discharge Instructions Patient Printed Discharge Instructions: Bradycardia, DI for Bradycardia Additional Instructions: You were evaluated for your asymptomatic bradycardia. Your troponins, which are measured to determine if there is cardiac damage, was negative. Please return to the emergency department if you have worsening symptoms or new concerning symptoms. Please follow up with your primary medical doctor or the one prescribed to you within 1 week after discharge. Thank you. - Post Discharge Activity
--- NOTE | 2019-02-13 00:28 | PDOC ---
Attending Attestation - Resident Resident Name: Layton Chao - ED Attending Attestation I have performed the following: I have examined & evaluated the patient, The case was reviewed & discussed with the resident, I agree w/resident's findings & plan - HPI HPI: 02/13/19 02:41 Pt comes with CP. He is a resident at [facility]. Pt has known cocaine and heroin use. - Physicial Exam PE: 02/13/19 03:48 Heart RRR; lungs clear Pt has no peripheral edema. Pt has no abd pain and no flank pain No rashes Afebrile. Sleeping, arousable answering questions. Neurologically intact - Medical Decision Making 02/13/19 05:39 2nd cardiac enzyme is normal.; he is stable to return to [facility]. Heart Score/ECG Review - ECG Intrepretation Rhythm: Regular Rhythm - [place]: Normal - P and VA Atrial Enlargement: Right Delta Wave(s) Present: No WPW: No - QRS Poor R Wave Progression: No Q Wave Present: No - ST and T Early Repolarization: No Non Specific ST-T Wave changes: No Flattened T Waves: Yes Prolonged Q-T Interval: No - ECG Impressions Normal ECG: Yes Non-specific ST Elevation: Yes Ischemic Changes: Yes (lateral flat and flipped Ts) Bradycardia: No
[2019-02-13 00:58] LABS: BASO % 2.3 % (0-2.0); EOS % 8.4 % (0-4.5); HEMATOCRIT 40.4 % (35.4-49); HEMOGLOBIN 13.5 GM/dL (11.7-16.9); MCH 31.6 pg (25.7-33.7); MCHC 33.4 g/dl (32.0-35.9); MEAN CELL VOLUME 94.6 fl (80-96); MEAN PLT VOLUME 9.5 fl (7.5-11.1); MONO % 10.1 % (3.8-10.2); NEUT % 37.2 % (42.8-82.8); PLATELET COUNT 156 K/MM3 (134-434); RBC 4.27 M/mm3 (4.00-5.60); RDW 13.9 % (11.9-15.9); WHITE BLOOD COUNT 3.7 K/mm3 (4.0-10.0)
[2019-02-13 01:28] LABS: ALBUMIN 3.2 g/dl (3.4-5.0); BILIRUBIN,TOTAL 0.2 mg/dL (0.2-1); BLOOD UREA NITROGEN 21.4 mg/dL (7-18); CALCIUM 9.1 mg/dL (8.5-10.1); CREATININE 0.8 mg/dL (0.55-1.3); POTASSIUM 4.1 mmol/L (3.5-5.1)
--- NOTE | 2019-02-13 23:09 | EKG ---
Test Reason : Blood Pressure : / mmHG Vent. Rate : 046 BPM Atrial Rate : 046 BPM P-R Int : 156 ms QRS Dur : 096 ms QT Int : 532 ms P-R-T Axes : 091 076 086 degrees QTc Int : 465 ms SINUS BRADYCARDIA VOLTAGE CRITERIA FOR LEFT VENTRICULAR HYPERTROPHY T WAVE ABNORMALITY, CONSIDER ANTEROLATERAL ISCHEMIA PROLONGED QT ABNORMAL ECG WHEN COMPARED WITH ECG OF 13-FEB-2019 00:55, T WAVE VARIATION Confirmed by JAYA DE SOUZA, MATTHIAS ([id number]) on 02/13/2019 11:09:28 PM Referred By: Confirmed By:MATTHIAS LAKE MD
--- NOTE | 2019-02-13 23:14 | EKG ---
Test Reason : Blood Pressure : / mmHG Vent. Rate : 045 BPM Atrial Rate : 045 BPM P-R Int : 156 ms QRS Dur : 094 ms QT Int : 552 ms P-R-T Axes : 082 076 084 degrees QTc Int : 477 ms SINUS BRADYCARDIA POSSIBLE LEFT ATRIAL ENLARGEMENT ABNORMAL ECG WHEN COMPARED WITH ECG OF 12-FEB-2019 23:32, NO SIGNIFICANT CHANGE WAS FOUND Confirmed by MATTHIAS LAKE MD ([id number]) on 02/13/2019 11:14:00 PM Referred By: Confirmed By:MATTHIAS LAKE MD
--- NOTE | 2019-02-15 13:42 | EKG ---
Test Reason : Blood Pressure : / mmHG Vent. Rate : 046 BPM Atrial Rate : 046 BPM P-R Int : 158 ms QRS Dur : 094 ms QT Int : 542 ms P-R-T Axes : 079 078 081 degrees QTc Int : 474 ms SINUS BRADYCARDIA VOLTAGE CRITERIA FOR LEFT VENTRICULAR HYPERTROPHY SEPTAL INFARCT (CITED ON OR BEFORE 13-FEB-2019) T WAVE ABNORMALITY, CONSIDER ANTERIOR ISCHEMIA ABNORMAL ECG WHEN COMPARED WITH ECG OF 12-FEB-2019 23:43, NO SIGNIFICANT CHANGE WAS FOUND Confirmed by LINN CANAS MD ([id number]) on 02/15/2019 1:42:00 PM Referred By: Confirmed By:LINN CANAS MD
== END 2019-02-13 08:05 | disposition short-term general hospital (02) ==
LOC: JER 23:16
DX: R00.1 Bradycardia, unspecified (principal); I10 Essential (primary) hypertension; B18.2 Chronic viral hepatitis C; R76.11 Nonspecific reaction to tuberculin skin test without active tuberculosis; F14.20 Cocaine dependence, uncomplicated; F11.20 Opioid dependence, uncomplicated; Z88.0 Allergy status to penicillin
CPT/HCPCS: 36415; 71045-TC-FY; 80053; 82550; 82553; 84484; 85025; 93005; 93010; 99284-25